=== PATIENT | female | born 1945 | race Caucasian/White ===

== ENCOUNTER 2021-03-08 01:03 | Emergency (ER) | payer OTHER ==
[2021-03-08] MEDS ORDERED: NA CHLORIDE 0.9% 0 ML ONE (02:19)
[2021-03-08] MEDS ORDERED: ONDANSETRON 4 MG/2 ML VIAL ONE (02:20)
[2021-03-08 02:28] LABS: Urine Blood 1+ (Negative); Urine Glucose Negative (Negative); Urine Protein Negative (Negative); Urine Specific Gravity >=1.030 (1.005-1.030)
[2021-03-08 02:46] LABS: Protime INR 0.95
[2021-03-08 02:53] LABS: Absolute Lymphocytes (CBC) 1.6 K/uL (0.7-4.9); Basophils % 0.6 % (0-1.3); Hematocrit 44.7 % (36.0-45.0); Lymphocytes % 21.6 % (15.3-44.8); MPV 8.1 fL (7.6-11.3); RBC Red Blood Cell Count 5.41 M/uL (3.86-4.86)
[2021-03-08] MEDS ORDERED: MORPHINE 2 MG/ML SYR ONE (02:56)
[2021-03-08 03:01] LABS: ALT/SGPT 29 U/L (12-78); AST/SGOT 15 U/L (15-37); Albumin 3.5 g/dL (3.4-5.0); Alkaline Phosphatase 69 U/L (45-117); BUN Blood Urea Nitrogen 18 mg/dL (7-18); Bicarbonate 28 mmol/L (21-32); Bilirubin Direct < 0.1 mg/dL (0-0.2); Bilirubin Total 0.2 mg/dL (0.2-1.0); Glucose Level 131 mg/dL (74-106); Lipase 259 U/L (73-393); NT PRO-BNP 118 pg/mL (<450); Potassium 3.5 mmol/L (3.5-5.1); Protein, Total 6.9 g/dL (6.4-8.2); Sodium Level 143 mmol/L (136-145); Troponin (Emerg Dept Use Only) < 0.02 ng/mL (0.0-0.045)
[2021-03-08] MEDS ORDERED: NA CHLORIDE 0.9% 500 ML ONE (04:33)
[2021-03-08] MEDS ORDERED: MORPHINE 4 MG/ML SYR ONE (06:12)
--- NOTE | 2021-03-08 07:21 | ER ---
Nurse's Notes [facility] Name: Josey Hutchinson Age: 76 yrs Sex: Female : 1945 Arrival Date: 03/08/2021 Time: 01:05 Bed 14 Private MD: Diagnosis: Other cholelithiasis without obstruction;UTI/ Urinary tract infection, site not specified;Upper abdominal pain, unspecified Presentation: 03/08 01:16 Chief complaint: Patient states: abd pain/chest pain/back pain. Coronavirus screen: df1 Vaccine status: Patient reports being unvaccinated. Client denies travel out of the [place] in the last 14 days. The client denies any previous COVID testing. Ebola Screen: Patient negative for fever greater than or equal to 101.5 degrees Fahrenheit, and additional compatible Ebola Virus Disease symptoms Patient denies exposure to infectious person. Patient denies travel to an Ebola-affected area in the 21 days before illness onset. Initial Sepsis Screen: Does the patient meet any 2 criteria? No. Patient's initial sepsis screen is negative. Does the patient have a suspected source of infection? No. Patient's initial sepsis screen is negative. Risk Assessment: Do you want to hurt yourself or someone else? Patient reports no desire to harm self or others. Onset of symptoms was March 08, 2021 at 00:00. 01:16 Method Of Arrival: Wheelchair df1 01:16 Acuity: SARATH 3 df1 01:23 Note Pt states woke up with sudden onset of abd pain radiating to mid-chest then to df1 back. Denies N/V/SOB. Triage Assessment: 01:22 General: Appears in no apparent distress. General: Behavior is calm, cooperative. Pain: df1 Complains of pain in xiphoid area and mid-sternal area. 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 - Social history:: Smoking status: Patient/guardian denies using tobacco. Screenin:20 Abuse screen: Denies threats or abuse. Denies injuries from another. Nutritional df1 screening: No deficits noted. Tuberculosis screening: No symptoms or risk factors identified. Fall Risk None identified. Assessment: 01:15 General: Appears in no apparent distress. comfortable, well groomed, well developed, bs2 well nourished, Behavior is cooperative, appropriate for age. Neuro: No deficits noted. Respiratory: No deficits noted. GI: Pt is actively vomiting bile. : No signs and/or symptoms were reported regarding the genitourinary system. 01:21 Pain: Pt states pain started in abd then chest then upper back. Pain began suddenly. df1 Cardiovascular: Chest pain is described as Pain is 6 out of 10 on a pain scale. episodes are intermittent. Vital Signs: 01:16 BP 147 / 71; Pulse 81; Resp 18; Temp 97.4; Pulse Ox 100% on R/A; Weight 68.04 kg; df1 Height 5 ft. 5 in. (165.10 cm); Pain 6/10; 02:38 BP 191 / 66; Pulse 84; Resp 18; Pulse Ox 100% on R/A; bs2 03:00 BP 145 / 77; Pulse 62; Resp 15; Pulse Ox 97% ; bs2 04:00 BP 156 / 75; Pulse 66; Resp 16; Pulse Ox 96% ; bs2 04:30 BP 158 / 89; Pulse 65; Resp 19; Pulse Ox 97% ; bs2 05:00 BP 165 / 90; Pulse 65; Resp 18; Pulse Ox 97% ; bs2 05:30 BP 159 / 84; Pulse 67; Resp 18; Pulse Ox 96% ; bs2 07:31 BP 157 / 77; Pulse 75; Resp 18; Pulse Ox 95% ; Pain 1/10; tc5 01:16 Body Mass Index 24.96 (68.04 kg, 165.10 cm) df1 ED Course: 01:05 Patient arrived in ED. ja2 01:15 EKG done, by missile technician. reviewed by Froylan Ocampo MD. oe 01:15 security monitor on. Pulse ox on. NIBP on. Warm blanket given. bs2 01:16 Froylan Ocampo MD is Attending Physician. mh7 01:17 Triage completed. df1 01:20 Patient has correct armband on for positive identification. Placed in gown. Bed in low df1 position. Call light in reach. Side rails up X 1. Adult w/ patient. security monitor on. Pulse ox on. NIBP on. 01:21 No provider procedures requiring assistance completed. Patient maintains SpO2 df1 saturation greater than 95% on room air. 01:24 Arm band placed on right wrist. df1 02:07 Naomie Paez is Primary Nurse. kc4 02:07 XRAY Chest (1 view) Sent. bs2 02:08 Troponin (emerg Dept Use Only) Sent. bs2 02:08 PT-INR Sent. bs2 02:08 NT PRO-BNP Sent. bs2 02:08 Magnesium Sent. bs2 02:08 LFT's Sent. bs2 02:08 CBC with Diff Sent. bs2 02:08 Basic Metabolic Panel Sent. bs2 02:09 Inserted saline lock: 20 gauge in left antecubital area, using aseptic technique. bs2 02:09 Lipase Sent. bs2 02:12 XRAY Chest (1 view) In Process Unspecified. EDMS 02:37 Urine Dipstick-Ancillary Sent. bs2 02:37 Lipase Sent. bs2 03:50 CT Chest For PE Angio In Process Unspecified. EDMS 03:50 CT Abd/Pelvis - IV Contrast Only In Process Unspecified. EDMS 06:34 US Abdomen Limited In Process Unspecified. EDMS 07:19 Armando Vidal MD is Referral Physician. mh7 07:48 IV discontinued, intact, bleeding controlled, No redness/swelling at site. Pressure tc5 dressing applied. Administered Medications: 02:07 Drug: Zofran (Ondansetron) 4 mg Route: IVP; Site: left antecubital; kc4 03:06 Follow up: Response: No adverse reaction df1 02:38 Drug: morphine 2 mg Route: IVP; Site: left antecubital; bs2 03:06 Follow up: Response: No adverse reaction df1 07:33 Follow up: Response: No adverse reaction; Pain is decreased tc5 04:11 Drug: NS 0.9% 500 ml Route: IV; Rate: bolus; Site: left antecubital; df1 06:14 Follow up: IV Status: Completed infusion bs2 07:33 Follow up: IV Status: Completed infusion; IV Intake: 500ml tc5 06:14 Drug: morphine 4 mg Route: IVP; Site: left antecubital; bs2 07:32 Follow up: Response: No adverse reaction; Pain is decreased tc5 07:22 Drug: Rocephin (cefTRIAXone) 1 grams Route: IV; Rate: per protocol; Site: left tc5 antecubital; 07:33 Follow up: Response: No adverse reaction tc5 Intake: 07:33 IV: 500ml; Total: 500ml. tc5 Outcome: 07:20 Discharge ordered by . michael 07:48 Discharged to home via wheelchair, with family. tc5 07:48 Condition: stable 07:48 Condition: stable 07:48 Discharge instructions given to patient. 07:49 Patient left the ED. 5 Signatures: Dispatcher [employer] EDMS Santiago Morales Maurice, MD MD 7 Franci Blandon, RN RN bs2 Naomie Paez 4 Indy Morton Dawn df1 Mable Bautista RN RN tc5
--- NOTE | 2021-03-08 07:21 | EDPHYS ---
Physician Documentation [facility] Name: Josey Hutchinson Age: 76 yrs Sex: Female : 1945 Arrival Date: 03/08/2021 Time: 01:05 Bed 14 Private MD: ED Physician Froylan Ocampo HPI: 03/08 01:30 This 76 yrs old Female presents to ER via Wheelchair with complaints of Chest mh7 Pain > 30 y/o, Nausea. 01:30 The patient presents with abdominal pain in the upper abdomen. mh7 01:30 Onset: The symptoms/episode began/occurred today, at 00:00. The symptoms radiate to mh7 chest. Associated signs and symptoms: Pertinent positives: nausea. 01:30 Associated signs and symptoms: Pertinent negatives: anorexia, blood in stools, mh7 constipation, diarrhea, dysuria, fever, headache, hematuria, palpitations, shortness of breath, vomiting, vomiting blood. The symptoms are described as intermittent, vague, waxing/waning. Modifying factors: The symptoms are alleviated by nothing, the symptoms are aggravated by nothing. 01:30 Severity of pain: At its worst the pain was moderate today, in the emergency department mh7 the pain has improved moderately. 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 - Social history:: Smoking status: Patient/guardian denies using tobacco. ROS: 01:30 Constitutional: Negative for fever, chills, and weight loss, Eyes: Negative for injury, mh7 pain, redness, and discharge, ENT: Negative for injury, pain, and discharge, Neck: Negative for injury, pain, and swelling, Respiratory: Negative for shortness of breath, cough, wheezing, and pleuritic chest pain, Back: Negative for injury and pain, : Negative for injury, bleeding, discharge, and swelling, MS/Extremity: Negative for injury and deformity, Skin: Negative for injury, rash, and discoloration, Neuro: Negative for headache, weakness, numbness, tingling, and seizure, Psych: Negative for depression, anxiety, suicide ideation, homicidal ideation, and hallucinations, Allergy/Immunology: Negative for hives, rash, and allergies, Endocrine: Negative for neck swelling, polydipsia, polyuria, polyphagia, and marked weight changes, Hematologic/Lymphatic: Negative for swollen nodes, abnormal bleeding, and unusual bruising. Exam: 01:30 Constitutional: This is a well developed, well nourished patient who is awake, alert, mh7 and in no acute distress. Head/Face: Normocephalic, atraumatic. Eyes: Pupils equal round and reactive to light, extra-ocular motions intact. Lids and lashes normal. Conjunctiva and sclera are non-icteric and not injected. Cornea within normal limits. Periorbital areas with no swelling, redness, or edema. Neck: Trachea midline, no thyromegaly or masses palpated, and no cervical lymphadenopathy. Supple, full range of motion without nuchal rigidity, or vertebral point tenderness. No Meningismus. Chest/axilla: Normal chest wall appearance and motion. Nontender with no deformity. No lesions are appreciated. Cardiovascular: Regular rate and rhythm with a normal S1 and S2. No gallops, murmurs, or rubs. Normal PMI, no JVD. No pulse deficits. Respiratory: Lungs have equal breath sounds bilaterally, clear to auscultation and percussion. No rales, rhonchi or wheezes noted. No increased work of breathing, no retractions or nasal flaring. Abdomen/GI: Soft, non-tender, with normal bowel sounds. No distension or tympany. No guarding or rebound. No evidence of tenderness throughout. Back: No spinal tenderness. No costovertebral tenderness. Full range of motion. Skin: Warm, dry with normal turgor. Normal color with no rashes, no lesions, and no evidence of cellulitis. MS/ Extremity: Pulses equal, no cyanosis. Neurovascular intact. Full, normal range of motion. Neuro: Awake and alert, GCS 15, oriented to person, place, time, and situation. Cranial nerves II-XII grossly intact. Motor strength 5/5 in all extremities. Sensory grossly intact. Cerebellar exam normal. Normal gait. Psych: Awake, alert, with orientation to person, place and time. Behavior, mood, and affect are within normal limits. Vital Signs: 01:16 BP 147 / 71; Pulse 81; Resp 18; Temp 97.4; Pulse Ox 100% on R/A; Weight 68.04 kg; df1 Height 5 ft. 5 in. (165.10 cm); Pain 6/10; 02:38 BP 191 / 66; Pulse 84; Resp 18; Pulse Ox 100% on R/A; bs2 03:00 BP 145 / 77; Pulse 62; Resp 15; Pulse Ox 97% ; bs2 04:00 BP 156 / 75; Pulse 66; Resp 16; Pulse Ox 96% ; bs2 04:30 BP 158 / 89; Pulse 65; Resp 19; Pulse Ox 97% ; bs2 05:00 BP 165 / 90; Pulse 65; Resp 18; Pulse Ox 97% ; bs2 05:30 BP 159 / 84; Pulse 67; Resp 18; Pulse Ox 96% ; bs2 07:31 BP 157 / 77; Pulse 75; Resp 18; Pulse Ox 95% ; Pain 1/10; tc5 01:16 Body Mass Index 24.96 (68.04 kg, 165.10 cm) df1 MDM: 07:18 Differential diagnosis: bowel obstruction, cholecystitis, Cholelithiasis, mh7 diverticulitis, gastritis, gastroesophageal reflux disease, non-specific abd pain, pancreatitis, Peptic Ulcer Disease, Pyelonephritis, Ureterolithiasis, urinary tract infection. Data reviewed: vital signs, nurses notes, lab test result(s), cardiac enzymes, CBC, electrolytes, urinalysis, EKG, radiologic studies, CT scan, plain films. Data interpreted: Pulse oximetry: on room air is 96 %. Interpretation: normal. Counseling: I had a detailed discussion with the patient and/or guardian regarding: the historical points, exam findings, and any diagnostic results supporting the discharge/admit diagnosis, the presence of at least one elevated blood pressure reading (>120/80) during this emergency department visit, lab results, radiology results, the need for outpatient follow up, a general surgeon, to return to the emergency department if symptoms worsen or persist or if there are any questions or concerns that arise at home. Response to treatment: the patient's symptoms have resolved after treatment, the patient's blood pressure is in an acceptable range, mental status has returned to baseline, the patient no longer shows bradycardia, the patient is not short of breath, the patient is not tachycardic, the patient's pain is gone, the patient's temperature has normalized. 07:20 Patient medically screened. [facility] 03/08 01:43 Order name: Basic Metabolic Panel; Complete Time: 03:03 [facility] 03/08 01:43 Order name: CBC with Diff; Complete Time: 03:03 [facility] 03/08 01:43 Order name: LFT's; Complete Time: 03:03 [facility] 03/08 01:43 Order name: Magnesium; Complete Time: 03:03 [facility] 03/08 01:43 Order name: NT PRO-BNP; Complete Time: 03:03 [facility] 03/08 01:43 Order name: PT-INR; Complete Time: 03:03 [facility] 03/08 01:43 Order name: Troponin (emerg Dept Use Only); Complete Time: 03:03 [facility] 03/08 01:43 Order name: XRAY Chest (1 view) [facility] 03/08 01:43 Order name: Lipase; Complete Time: 03:03 [facility] 03/08 02:28 Order name: Urine Dipstick-Ancillary [facility] 03/08 03:04 Order name: CT Chest For PE Angio [facility] 03/08 03:04 Order name: CT Abd/Pelvis - IV Contrast Only [facility] 03/08 05:53 Order name: Troponin (emerg Dept Use Only); Complete Time: 07:11 [facility] 03/08 01:43 Order name: EKG; Complete Time: 01:44 [facility] 03/08 01:43 Order name: Cardiac monitoring; Complete Time: 02:08 [facility] 03/08 01:43 Order name: EKG - Nurse/Tech; Complete Time: 02:08 [facility] 03/08 01:43 Order name: IV Saline Lock; Complete Time: 02:08 [facility] 03/08 01:43 Order name: Labs collected and sent; Complete Time: 02:08 [facility] 03/08 01:43 Order name: O2 Per Protocol; Complete Time: 02:08 [facility] 03/08 01:43 Order name: O2 Sat Monitoring; Complete Time: 02:08 [facility] 03/08 01:43 Order name: Urine Dipstick-Ancillary (obtain specimen); Complete Time: 02:37 [facility] 10/20 05:53 Order name: US Abdomen Limited [facility] Administered Medications: 02:07 Drug: Zofran (Ondansetron) 4 mg Route: IVP; Site: left antecubital; kc4 03:06 Follow up: Response: No adverse reaction df1 02:38 Drug: morphine 2 mg Route: IVP; Site: left antecubital; bs2 03:06 Follow up: Response: No adverse reaction df1 07:33 Follow up: Response: No adverse reaction; Pain is decreased tc5 04:11 Drug: NS 0.9% 500 ml Route: IV; Rate: bolus; Site: left antecubital; df1 06:14 Follow up: IV Status: Completed infusion bs2 07:33 Follow up: IV Status: Completed infusion; IV Intake: 500ml tc5 06:14 Drug: morphine 4 mg Route: IVP; Site: left antecubital; bs2 07:32 Follow up: Response: No adverse reaction; Pain is decreased tc5 07:22 Drug: Rocephin (cefTRIAXone) 1 grams Route: IV; Rate: per protocol; Site: left tc5 antecubital; 07:33 Follow up: Response: No adverse reaction tc5 Disposition Summary: 03/08/21 07:20 Discharge Ordered Location: Home [facility] Problem: new [facility] Symptoms: have improved [facility] Condition: Stable [facility] Diagnosis - Other cholelithiasis without obstruction mh7 - UTI/ Urinary tract infection, site not specified mh7 - Upper abdominal pain, unspecified 7 Followup: [facility] - With: Private Physician - When: 1 - 2 days - Reason: Worsening of condition, Recheck today's complaints, Continuance of care, Re-evaluation by your physician Followup: [facility] - With: Armando Vidal MD - When: 1 - 2 days - Reason: Worsening of condition, Recheck today's complaints Discharge Instructions: - Discharge Summary Sheet [facility] - Cholelithiasis mh7 - Urinary Tract Infection, Adult, [id number] [facility] - Abdominal Pain, Adult, [id number] [facility] Forms: - Medication Reconciliation Form [facility] - Thank You Letter [facility] - Antibiotic Education [facility] - Prescription Opioid Use [facility] Prescriptions: - ondansetron 4 mg Oral tablet,disintegrating - place 1 tablet by TRANSLINGUAL route every 8 hours As needed; 10 tablet; [facility] Refills: 0, Product Selection Permitted - Cephalexin 500 mg Oral Capsule - take 1 capsule by ORAL route every 12 hours for 7 days; 14 capsule; Refills: 0, [facility] Product Selection Permitted - dicyclomine 20 mg Oral Tablet - take 1 tablet by ORAL route 4 times per day As needed; 20 tablet; Refills: 0, 7 Product Selection Permitted Signatures: Dispatcher [employer] Froylan Coats MD MD 7 Franci Blandon RN RN bs2 Naomie Paez4 Lianet Rodriguez df1 Mable Bautista RN RN tc5
--- NOTE | 2021-03-08 07:31 | RAD REPORT ---
EXAM DESCRIPTION: Alejo Single View03/08/2021 2:12 am CLINICAL HISTORY: Chest pain COMPARISON: 2015 FINDINGS: The lungs appear clear of acute infiltrate. The heart is normal size IMPRESSION: No acute abnormalities displayed
[2021-03-08] MEDS ORDERED: CEFTRIAXONE 1000 MG/VIAL ONE (07:43)
[2021-03-08 07:56] VITALS: TEMP 97.4
[2021-03-08 08:06] VITALS: BP 157/77; O2SAT 95
--- NOTE | 2021-03-08 08:09 | RAD REPORT ---
EXAM DESCRIPTION: US - Abdomen Exam Limited - 03/08/2021 6:34 am CLINICAL HISTORY: Abdominal pain. COMPARISON: March 08, 2021 CT FINDINGS: The gallbladder wall is not thickened. Multiple gallstones. Borderline gallbladder disten tion. The biliary tree is normal caliber. IMPRESSION: Cholelithiasis Borderline gallbladder distention
--- NOTE | 2021-03-08 12:41 | RAD REPORT ---
EXAM DESCRIPTION: CT - Abdomen Pelvis W Contrast - 03/08/2021 6:49 am CLINICAL HISTORY: ABD PAIN COMPARISON: None Available. TECHNIQUE: CT of the abdomen and pelvis performed following IV administration of iodinated contras t. This exam was performed according to our departmental dose-optimization program, which includes au tomated exposure control, adjustment of the mA and/or kV according to patient size and/or use of iter ative reconstruction technique. FINDINGS: Lung Bases: Please see dedicated CT of the chest performed same day Bones: Multilevel endplate spondylosis and facet arthropathy. Abdomen: Liver: The liver has normal size and density. No intrahepatic biliary dilatation. Gallbladder: Calcified gallstones. Spleen, Pancreas, and Adrenal Glands: The spleen, pancreas, and adrenal glands are unremarkable. Kidneys: No hydronephrosis or obstructing calculus. Vasculature: Aortoiliac atherosclerosis. IVC is unremarkable. The portal vein is patent. The proxim al visceral and renal arteries are patent. Stomach: The stomach and duodenum have normal course. Small duodenal diverticulum. Other: No free intraperitoneal air. No free fluid or lymphadenopathy. Pelvis: Bladder: Urinary bladder is unremarkable. Bowel: No dilated loops of large or small bowel. Scattered diverticula of the colon. Appendix: Normal appendix. Pelvis: Uterus is not enlarged. Indeterminate cystic structure in the left posterior pelvis adjacent to the sigmoid colon measuring 3.0 cm in greatest dimension. IMPRESSION: 1. No acute inflammatory or obstructive process identified. 2. Cholelithiasis without CT evidence of acute cholecystitis. 3. Diverticulosis without evidence of acute diverticulitis. 4. Indeterminate cystic structure in the left posterior pelvis adjacent to the sigmoid colon measur ing 3.0 cm in greatest dimension. Correlation with outside studies are available for stability recomm ended. Otherwise follow-up CT of the abdomen and in 3-6 months recommended to confirm stability. Electronically signed by: Buddy Bennett 03/08/2021 4:36 AM CDT Due to temporary technical issues with the PACS/Fluency reporting system, reports are being signed by the in house radiologist without review as a courtesy to ensure prompt reporting. The interpreting r adiologist is fully responsible for the content of the report.
--- NOTE | 2021-03-08 12:42 | RAD REPORT ---
EXAM DESCRIPTION: CT - Chest For Pe Angio - 03/08/2021 6:50 am CLINICAL HISTORY: The patient is 76 years old and is Female; CHEST PAIN TECHNIQUE: Axial computed tomographic angiography images of the chest with intravenous contrast. S agittal and coronal reformatted images were created and reviewed. This CT exam was performed using one or more of the following dose reduction techniques: automated exposure control, adjustment of t he mA and/or kV according to patient size, and/or use of iterative reconstruction technique. MIP reconstructed images were created and reviewed. COMPARISON: No relevant prior studies available. FINDINGS: PULMONARY ARTERIES: There are no obvious filling defects identified within the pulmonary arteries to suggest pulmonary embolism. AORTA: No acute findings. No thoracic aortic aneurysm. LUNGS: Minimal dependent densities in the lung bases are present. No mass. PLEURAL SPACE: Unremarkable. No significant effusion. No pneumothorax. HEART: Unremarkable. No cardiomegaly. No significant pericardial effusion. No evidence of RV dysfunction. BONES/JOINTS: A small 1.6 cm fluid attenuating lesion adjacent to the T10 vertebral body on the right is present which may be secondary to a synovial cyst. Minimal degenerative change of the spin e is present. No acute fracture. No dislocation. SOFT TISSUES: Unremarkable. LYMPH NODES: Unremarkable. No enlarged lymph nodes. PANCREAS: Mild fatty infiltration of pancreas is noted. IMPRESSION: No evidence of pulmonary embolism. Electronically signed by: Emma Caldwell MD 03/08/2021 4:22 AM CDT Due to temporary technical issues with the PACS/Fluency reporting system, reports are being signed by the in house radiologist without review as a courtesy to ensure prompt reporting. The interpreting r adiologist is fully responsible for the content of the report.
== END 2021-03-08 07:49 | disposition home or self-care (01) ==
LOC: ER 01:03
DX: K80.80 Other cholelithiasis without obstruction (principal); N39.0 Urinary tract infection, site not specified; Z88.2 Allergy status to sulfonamides; Z88.5 Allergy status to narcotic agent; Z88.8 Allergy status to other drugs, medicaments and biological substances
CPT/HCPCS: 93005; 85025; 80048; 36415; 83735; 85610; 80076; 81003; 84484 ×2; 83690; 83880; 71275; 74177; 71045; 76705; Q9967; J2270; J7040; J2405; J7030

== ENCOUNTER 2021-04-28 13:22 | Emergency (ER) | payer OTHER ==
--- NOTE | 2021-04-28 14:20 | RAD REPORT ---
EXAM DESCRIPTION: RAD - Chest Single View - 04/28/2021 2:10 pm CLINICAL HISTORY: CHEST PAIN COMPARISON: Chest Single View dated 03/08/2021; Chest Pa And Lat (2 Views) dated 09/03/2015; CHEST PA AND LAT 2 VIEW dated 12/30/2014 FINDINGS: Lines: None. Lungs: No evidence of edema or pneumonia. Pleural: No significant pleural effusions or pneumothorax. Cardiac: The heart size is within normal limits. Bones: No acute fractures. Other: IMPRESSION: No acute cardiopulmonary disease.
[2021-04-28 14:30] LABS: Absolute Lymphocytes (CBC) 0.9 K/uL (0.7-4.9); Basophils % 0.6 % (0-1.3); Hematocrit 43.6 % (36.0-45.0); Lymphocytes % 14.3 % (15.3-44.8); MPV 8.4 fL (7.6-11.3); RBC Red Blood Cell Count 5.35 M/uL (3.86-4.86)
[2021-04-28 14:31] LABS: Protime INR 0.96
[2021-04-28 14:59] LABS: ALT/SGPT 728 U/L (12-78); Albumin 3.1 g/dL (3.4-5.0); Alkaline Phosphatase 191 U/L (45-117); BUN Blood Urea Nitrogen 15 mg/dL (7-18); Bicarbonate 27 mmol/L (21-32); Glucose Level 115 mg/dL (74-106); Magnesium 2.3 mg/dL (1.8-2.4); NT PRO-BNP 122 pg/mL (<450); Potassium 3.7 mmol/L (3.5-5.1); Protein, Total 6.7 g/dL (6.4-8.2); Sodium Level 142 mmol/L (136-145); Troponin (Emerg Dept Use Only) < 0.02 ng/mL (0.0-0.045)
[2021-04-28 15:01] LABS: AST/SGOT 612 U/L (15-37)
--- NOTE | 2021-04-28 17:02 | RAD REPORT ---
EXAM DESCRIPTION: US - Abdomen Exam Limited - 04/28/2021 4:54 pm CLINICAL HISTORY: EPIGASTRIC PAIN COMPARISON: Abdomen Exam Limited dated 03/08/2021; Abdomen Pelvis W Contrast dated 03/08/2021 FINDINGS: Cholelithiasis is present. The gallbladder wall measures 3 millimeters which is within nor mal limits. No pericholecystic fluid is identified. No biliary ductal dilatation. The common bile hesham t measures 5 millimeters. No sonographic Smith's sign was elicited. IMPRESSION: Cholelithiasis without sonographic evidence of acute cholecystitis.
--- NOTE | 2021-04-28 17:43 | ER ---
Nurse's Notes [facility] Name: Josey Hutchinson Age: 76 yrs Sex: Female : 1945 Arrival Date: 04/28/2021 Time: 13:24 Bed 6 Private MD: Diagnosis: Other cholelithiasis without obstruction Presentation: 04/28 13:31 Chief complaint: Patient states: Chest pain began yesterday and went away then today at vg1 1000 chest pain began again, pt states radiates to back. Denies NV, SOB, or difficulty breathing. Coronavirus screen: Vaccine status: Patient reports being unvaccinated. Client denies travel out of the [place] in the last 14 days. Ebola Screen: Patient negative for fever greater than or equal to 101.5 degrees Fahrenheit, and additional compatible Ebola Virus Disease symptoms. Initial Sepsis Screen: Does the patient meet any 2 criteria? No. Patient's initial sepsis screen is negative. Does the patient have a suspected source of infection? No. Patient's initial sepsis screen is negative. Risk Assessment: Do you want to hurt yourself or someone else? Patient reports no desire to harm self or others. Onset of symptoms was April 27, 2021. 13:31 Method Of Arrival: Ambulatory vg1 13:31 Acuity: SARATH 2 vg1 Triage Assessment: 13:33 General: Appears in no apparent distress. comfortable, Behavior is calm, cooperative. vg1 Pain: Complains of pain in mid-sternal area Pain radiates to back Pain currently is 6 out of 10 on a pain scale. Cardiovascular: Patient's skin is warm and dry. Respiratory: Denies shortness of breath. Historical: - Allergies: 13:33 Benadryl; vg1 13:33 Codeine; vg1 13:33 Sulfa (Sulfonamide Antibiotics); vg1 13:33 atorvastatin; vg1 13:33 Dilantin; vg1 - Home Meds: 13:33 zyzol 2.5 mg daily [Active]; dicyclomine Oral [Active]; Zofran Oral [Active]; vg1 - PMHx: 13:33 histamine allergy; "non fuctioning"; Hypertensive disorder; vg1 - Immunization history:: Client reports having NOT received the Covid vaccine. - Social history:: Smoking status: Patient reports the use of cigarette tobacco products, "less that 10 a day". Screenin:58 Abuse screen: Denies threats or abuse. Nutritional screening: No deficits noted. ll1 Tuberculosis screening: No symptoms or risk factors identified. 14:42 Fall Risk IV access (20 points). Total [place] Fall Scale indicates No Risk (0-24 pts). ll1 Assessment: 14:30 Reassessment: No changes from previously documented assessment. Patient and/or family ll1 updated on plan of care and expected duration. Pain level reassessed. Patient is alert, oriented x 3, equal unlabored respirations, skin warm/dry/pink. 15:30 Reassessment: No changes from previously documented assessment. Patient and/or family ll1 updated on plan of care and expected duration. Pain level reassessed. Patient is alert, oriented x 3, equal unlabored respirations, skin warm/dry/pink. 16:30 Reassessment: No changes from previously documented assessment. Patient and/or family ll1 updated on plan of care and expected duration. Pain level reassessed. Patient is alert, oriented x 3, equal unlabored respirations, skin warm/dry/pink. 17:30 Reassessment: No changes from previously documented assessment. Patient and/or family ll1 updated on plan of care and expected duration. Pain level reassessed. Patient is alert, oriented x 3, equal unlabored respirations, skin warm/dry/pink. 17:52 Reassessment: No changes from previously documented assessment. Patient and/or family ll1 updated on plan of care and expected duration. Pain level reassessed. Patient is alert, oriented x 3, equal unlabored respirations, skin warm/dry/pink. Pain: Denies pain. 17:52 Pain: Pain began suddenly. ll1 Vital Signs: 13:31 BP 185 / 85; Pulse 62; Resp 16; Temp 98.8; Pulse Ox 99% ; Weight 65.32 kg; Height 5 ft. vg1 5 in. (165.10 cm); Pain 6/10; 14:41 BP 142 / 84; ll1 16:00 BP 172 / 89; Pulse 56; Resp 16; Pulse Ox 99% ; ll1 17:50 BP 184 / 84; Pulse 58; Resp 16; Pulse Ox 99% ; ll1 13:31 Body Mass Index 23.96 (65.32 kg, 165.10 cm) vg1 ED Course: 13:24 Patient arrived in ED. am2 13:33 Triage completed. vg1 13:33 Arm band placed on. EKG completed in triage. Results shown to MD. vg1 13:38 Grace Willis, RN is Primary Nurse. ll1 13:38 Patient placed in an exam room, on a stretcher. ll1 13:58 Inserted saline lock: 20 gauge in left forearm, using aseptic technique. Blood ll1 collected. 14:10 XRAY Chest (1 view) In Process Unspecified. EDMS 14:41 Patient has correct armband on for positive identification. Bed in low position. Call ll1 light in reach. Side rails up X 1. Side rails up X2. court recording monitor on. Pulse ox on. NIBP on. 14:42 Patient maintains SpO2 saturation greater than 95% on room air. ll1 15:02 Kishan Moffett NP is PHCP. pm1 15:02 Daniel Rdz MD is Attending Physician. pm1 16:54 US Abdomen Limited In Process Unspecified. EDMS 17:43 Armando Vidal MD is Referral Physician. pm1 17:51 IV discontinued, intact, bleeding controlled, No redness/swelling at site. Pressure ll1 dressing applied. 17:52 No provider procedures requiring assistance completed. ll1 Administered Medications: No medications were administered Outcome: 17:43 Discharge ordered by MD. pm1 17:52 Discharged to home ambulatory. ll1 17:52 Condition: stable 17:52 Discharge instructions given to patient, Instructed on discharge instructions, follow up and referral plans. medication usage, Demonstrated understanding of instructions, follow-up care, medications, Prescriptions given X 2. 17:53 Patient left the ED. ll1 Signatures: Dispatcher [employer] EDSC Kishan Moffett, BLEIA METAL SLITTER pm1 Gali Preston am2 Jacqueline Mcclure, RN RN vg1 Grace Willis, RN RN ll1
--- NOTE | 2021-04-28 17:44 | EDPHYS ---
Physician Documentation [facility] Name: Josey Hutchinson Age: 76 yrs Sex: Female : 1945 Arrival Date: 04/28/2021 Time: 13:24 Bed 6 Private MD: ED Physician Daniel Rdz HPI: 04/28 13:50 This 76 yrs old Female presents to ER via Ambulatory with complaints of Chest Pain > 30 pm1 y/o. 13:50 The patient or guardian reports chest pain that is located primarily in the epigastric pm1 area. Onset: this morning, 1.5 - 2 hours after eating fried egg this AM for breakfast. The pain does not radiate. Associated signs and symptoms: The patient has no apparent associated signs or symptoms. The chest pain is described as sharp. Duration: The patient or guardian reports a single episode, that is now resolved, With Bentyl taking after onset of pain. Resolved prior to ER arrival in room. Modifying factors: The symptoms are alleviated by Bentyl. the symptoms are aggravated by eating. Severity of pain: in the emergency department the pain has resolved. The patient has experienced a previous episode, and the symptoms today are exactly the same, 03/08 admission for chest pain that resulted in cholelithiasis diagnosis and follow-up with Dr. Vidal. She has a scheduled surgery with him at the beginning of next year. The patient has not recently seen a physician. Historical: - Allergies: 13:33 Benadryl; vg1 13:33 Codeine; vg1 13:33 Sulfa (Sulfonamide Antibiotics); vg1 13:33 atorvastatin; vg1 13:33 Dilantin; vg1 - Home Meds: 13:33 zyzol 2.5 mg daily [Active]; dicyclomine Oral [Active]; Zofran Oral [Active]; vg1 - PMHx: 13:33 histamine allergy; "non fuctioning"; Hypertensive disorder; vg1 - Immunization history:: Client reports having NOT received the Covid vaccine. - Social history:: Smoking status: Patient reports the use of cigarette tobacco products, "less that 10 a day". ROS: 13:50 Constitutional: Negative for fever, chills, and weight loss, Respiratory: Negative for pm1 shortness of breath, cough, wheezing, and pleuritic chest pain. 13:50 Back: Negative for injury and pain, MS/Extremity: Negative for injury and deformity, Skin: Negative for injury, rash, and discoloration, Neuro: Negative for headache, weakness, numbness, tingling, and seizure. 13:50 Cardiovascular: Positive for chest pain, of the epigastric area. 13:50 Abdomen/GI: Positive for abdominal pain, of the epigastric area, Negative for nausea, vomiting, and diarrhea. 13:50 All other systems are negative. Exam: 13:50 Constitutional: This is a well developed, well nourished patient who is awake, alert, pm1 and in no acute distress. Head/Face: Normocephalic, atraumatic. 13:50 Skin: Warm, dry with normal turgor. Normal color with no rashes, no lesions, and no evidence of cellulitis. MS/ Extremity: Pulses equal, no cyanosis. Neurovascular intact. Full, normal range of motion. 13:50 Eyes: Exam is negative for acute changes, Extraocular movements: no acute changes, Conjunctiva: no acute changes, no injection, Sclera: no acute changes, icterus, is not appreciated. 13:50 ENT: Exam is negative for acute changes, Mouth: no acute changes, Lips: normal, moist, Oral mucosa: normal, pink and intact, moist. 13:50 Cardiovascular: Exam negative for acute changes, Rate: normal, Rhythm: regular, Pulses: no pulse deficits are appreciated, Heart sounds: normal. 13:50 Respiratory: Exam negative for acute changes, the patient does not display signs of respiratory distress, Respirations: normal, Breath sounds: are clear throughout. 13:50 Abdomen/GI: Exam negative for acute changes, Inspection: abdomen appears normal, Palpation: abdomen is soft and non-tender, in all quadrants. 13:50 Neuro: Exam negative for acute changes, Orientation: is normal, Mentation: is normal, Motor: is normal, moves all fours. 17:35 Abdomen/GI: Exam negative for acute changes, Inspection: abdomen appears normal, pm1 Palpation: abdomen is soft and non-tender, in all quadrants. Vital Signs: 13:31 BP 185 / 85; Pulse 62; Resp 16; Temp 98.8; Pulse Ox 99% ; Weight 65.32 kg; Height 5 ft. vg1 5 in. (165.10 cm); Pain 6/10; 14:41 BP 142 / 84; ll1 16:00 BP 172 / 89; Pulse 56; Resp 16; Pulse Ox 99% ; ll1 17:50 BP 184 / 84; Pulse 58; Resp 16; Pulse Ox 99% ; ll1 13:31 Body Mass Index 23.96 (65.32 kg, 165.10 cm) vg1 MDM: 15:28 Patient medically screened. pm1 17:34 Data reviewed: vital signs. Data interpreted: Pulse oximetry: on room air is 99 %. pm1 Interpretation: normal. 17:42 Physician consultation: Armando Vidal MD regarding patient's condition, and will see pm1 patient in office, Prescription for Augmentin for 7 days, have patient call the office on Saturday to follow up and move up her appointment, and dietary instructions. I discussed the conversation with Dr. Rdz and Dr. Vidal with the patient and the patient understands the plan of care. 04/28 13:50 Order name: Basic Metabolic Panel; Complete Time: 15:28 1 04/28 13:50 Order name: CBC with Diff; Complete Time: 15:28 ll1 04/28 13:50 Order name: LFT's; Complete Time: 15:28 ll1 04/28 13:50 Order name: Magnesium; Complete Time: 15:28 ll1 04/28 13:50 Order name: NT PRO-BNP; Complete Time: 15:28 ll1 04/28 13:50 Order name: PT-INR; Complete Time: 15:28 1 04/28 13:50 Order name: Troponin (emerg Dept Use Only); Complete Time: 15:28 1 04/28 13:50 Order name: XRAY Chest (1 view); Complete Time: 15:28 ll1 04/28 13:50 Order name: EKG; Complete Time: 13:50 ll1 04/28 13:50 Order name: Cardiac monitoring; Complete Time: 13:50 ll1 04/28 13:50 Order name: EKG - Nurse/Tech; Complete Time: 13:50 ll1 04/28 13:50 Order name: IV Saline Lock; Complete Time: 13:50 ll1 04/28 15:29 Order name: US Abdomen Limited; Complete Time: 17:07 pm1 04/28 15:29 Order name: Lipase pm1 04/28 13:50 Order name: Labs collected and sent; Complete Time: 13:50 ll1 04/28 13:50 Order name: O2 Per Protocol; Complete Time: 13:50 ll1 04/28 13:50 Order name: O2 Sat Monitoring; Complete Time: 13:50 ll1 Administered Medications: No medications were administered Disposition Summary: 04/28/21 17:43 Discharge Ordered Location: Home pm1 Problem: new pm1 Symptoms: have improved pm1 Condition: Stable pm1 Diagnosis - Other cholelithiasis without obstruction pm1 Followup: pm1 - With: Emergency Department - When: As needed - Reason: Worsening of condition Followup: pm1 - With: Armando Vidal MD - When: 2 - 3 days - Reason: Recheck today's complaints, Continuance of care, Re-evaluation by your physician Discharge Instructions: - Discharge Summary Sheet pm1 - Cholelithiasis pm1 Forms: - Medication Reconciliation Form pm1 - Thank You Letter pm1 - Antibiotic Education pm1 - Prescription Opioid Use pm1 Prescriptions: - Augmentin 875-125 mg Oral Tablet - take 1 tablet by ORAL route every 12 hours for 7 days; 14 tablet; Refills: 0, pm1 Product Selection Permitted - Tramadol 50 mg Oral Tablet - take 1 tablet by ORAL route every 8 hours as needed; 12 tablet; Refills: 0, pm1 Product Selection Permitted Addendum: 05/01/2021 11:21 Co-signature as Attending Physician, Daniel Rdz MD I agree with the assessment and k dr plan of care. Signatures: Dispatcher [employer] EDDaniel Arnold MD MD kdr Marinas, Patrick, NP OXYGEN FURNACE OPERATOR pm1 Jacqueline Mcclure, RN RN 1 Grace Willis RN RN ll1
[2021-04-28 18:06] VITALS: TEMP 98.8; O2SAT 99
[2021-04-28 18:11] VITALS: BP 184/84
== END 2021-04-28 17:53 | disposition home or self-care (01) ==
LOC: ER 13:22
DX: K80.80 Other cholelithiasis without obstruction (principal); I10 Essential (primary) hypertension
CPT/HCPCS: 36415; 71045; 76705; 80048; 80076; 83690; 83735; 83880; 84484; 85025; 85610; 93005; 99285

== ENCOUNTER 2021-05-10 07:27 | Day surgery (SDC) | payer OTHER ==
[2021-05-09 14:26] LABS: Albumin 3.2 g/dL (3.4-5.0); Bilirubin Total 0.3 mg/dL (0.2-1.0); Potassium 3.9 mmol/L (3.5-5.1); Protein, Total 6.7 g/dL (6.4-8.2)
[2021-05-10] MEDS ORDERED: Ringers Lactate 1,000 ML IV ONE (07:49)
[2021-05-10] MEDS ORDERED: CEFOXITIN 2 GM in NA CHLORIDE 0.9% 100 ML IVPB ONE (08:00)
[2021-05-10 08:05] LABS: Albumin 3.3 g/dL (3.4-5.0); Bilirubin Total 0.5 mg/dL (0.2-1.0); Potassium 3.4 mmol/L (3.5-5.1); Protein, Total 7.1 g/dL (6.4-8.2)
[2021-05-10] MEDS ORDERED: BUPIVACAINE 0.25% PF 10 ML VIAL ONE (08:38)
[2021-05-10] MEDS ORDERED: FENTANYL CITR 100 MCG/2 ML ONE ×2 (09:18→10:33)
[2021-05-10] MEDS ORDERED: LIDOCAINE 1% MPF 5 ML VIAL ONE (09:18)
[2021-05-10] MEDS ORDERED: propofoL 200 MG/20 ML VIAL IV ONE (09:18)
[2021-05-10] MEDS ORDERED: ROCURONIUM 50 MG/5 ML VIAL IV ONE (09:18)
[2021-05-10] MEDS ORDERED: EPHEDRINE SULF 50 MG/ML VIAL ONE (09:50)
[2021-05-10] MEDS ORDERED: NS 0.9% VIAL 10 ML ONE (09:50)
[2021-05-10] MEDS ORDERED: KETOROLAC 30 MG/ML INJ ONE (10:02)
[2021-05-10] MEDS ORDERED: dexAMETHasone 10 MG/ML VIAL ONE (10:02)
[2021-05-10] MEDS ORDERED: ONDANSETRON 4 MG/2 ML VIAL ONE (10:04)
[2021-05-10] MEDS ORDERED: NEOSTIGMINE 1 MG/ML -5 ML ONE (10:41)
[2021-05-10] MEDS ORDERED: GLYCOPYRROLATE 0.2 MG/ML SYR ONE (10:41)
--- NOTE | 2021-05-10 10:54 | P.OP ---
Preoperative diagnosis: Cholecystitis with cholelithiasis Postoperative diagnosis: Cholecystitis with cholelithiasis Primary procedure: Laparoscopic Cholecystectomy Secondary procedure: ICG Cholangiography Anesthesia: GETA + Local Estimated blood loss: <10cc Specimen: gallbladder Findings: Inflammatory changes, adhesions, KENNEDY, cholelithiasis Complications: None Transferred to: Recovery Room Condition: Good
--- NOTE | 2021-05-10 11:38 | OP ---
Date of Procedure: 05/10/2021 Surgeon: Armando Vidal MD, Preoperative Diagnosis: Cholecystitis with cholelithiasis. Postoperative Diagnosis: Cholecystitis with cholelithiasis. Procedure Performed: Laparoscopic cholecystectomy with indocyanine green cholangiography. Anesthesia: General endotracheal plus local with 0.25% Marcaine. Estimated Blood Loss: 10 mL. Specimen: Gallbladder. Findings: 1.Inflammatory changes to the right upper quadrant with significant adhesions from the omentum to th e anterior surface of the gallbladder. In addition, the stomach was firmly attached to the medial as pect of the gallbladder with alveolar type adhesions. The patient had a KENNEDY type nodular appearance to the liver generally consistent with steatohepatitis versus early cirrhotic changes. 2.The patient had cholelithiasis. Complications: None. The patient transferred to recovery room in good condition. Procedure In Detail: After informed consent was obtained, patient was brought to the operating room, prepped and draped in the usual sterile fashion. After adequate anesthesia achieved, a supraumbilic al area was anesthetized with 0.25% Marcaine, sharply incised. A 5 mm trocar was placed under direct vision without complication. Insufflation obtained to 15 mmHg at this time. There was no injury to vital structures upon entering the abdomen. Three additional trocars were placed, 2 in the right up per quadrant, 1 in the epigastrium. This was similarly anesthetized, sharply incised, a 5 mm trocar was placed under direct visualization without complication. The umbilical trocar was then up-sized t o a 12 mm direct visualization without any complication. The patient was positioned head up in right -side up position. Ratcheted graspers were used to grasp the patient's gallbladder, placed towards t he right shoulder. Dissection continued to remove the omental tissue attached to the anterior surfac e of the gallbladder as well as stomach off the medial aspect of the gallbladder with a combination o f electrocautery and blunt dissection. After the structures were mobilized, the gallbladder was visu alized. ICG cholangiography confirmed position after dissection of the cystic duct and cystic artery . Critical view of safety was obtained at this point, and ICG cholangiography confirmed position. T he common duct not involved in the dissection. The cystic duct was identified at this point. After it was completely skeletonized, double titanium clips were placed doubly on the proximal side, singly on the distal side of both cystic duct and cystic artery. Structures were then ligated using Endo S hears. The gallbladder was then removed from the hepatic fossa without evidence of complication and placed in EndoCatch bag and removed through the umbilical trocar, sent off for pathologic examination . The abdomen was then reinsufflated at this point. Electrocautery was used to fulgurate the distal aspect of the hepatic bed with minimal bleeding at this point. Blood loss from the entire portion o f procedure up to this point was approximately less than 10 mL. After the area was cleansed, it was copiously irrigated multiple times and suctioned out completely dry. The patient was positioned back into neutral position. The umbilical trocar site was then closed using a Paul-Eduard suture pas ser with 0 Vicryl in interrupted fashion. Good approximation of tissues. The remaining trocars were then removed under direct visualization without any complication. After completely desufflating the abdomen, all skin incisions were then copiously irrigated closed with 4-0 Monocryl in a running fash ion. Dermabond placed over top. The patient tolerated the procedure well without evidence of compli cation and transferred to PACU in good condition. All counts were correct at the end of the case. GONZALO/CHANELL Voice ID: [id number] Report ID: [id number]
[2021-05-10] MEDS: MORPHINE 4 MG/ML SYR ONE ×2 (11:49→11:55)
[2021-05-10] MEDS ORDERED: TRAMADOL HCL 50 MG TAB ONE (12:38)
[2021-05-10] MEDS ORDERED: PROMETHAZINE INJ 25 MG/ML AMP ONE (12:59)
[2021-05-10 13:33] VITALS: BP 108/53; TEMP 96.3; O2SAT 96
== END 2021-05-10 14:00 | disposition home or self-care (01) ==
LOC: OR 07:27
PROVIDERS: ATTEND Surgery
PROC: BF03YZZ Plain Radiography of Gallbladder and Bile Ducts using Other Contrast (ICD-10-PCS; 2021-05-10)
PROC: 0FT44ZZ Resection of Gallbladder, Percutaneous Endoscopic Approach (ICD-10-PCS; principal; 2021-05-10 09:30)
DX: K80.10 Calculus of gallbladder with chronic cholecystitis without obstruction (principal); Z20.822 Contact with and (suspected) exposure to COVID-19
CPT/HCPCS: 36415 ×2; 88304; 83690; 80053 ×2; 47563; U0003; J2704; J2550; J3010 ×2; J1100; J2710; J7120; J0694; J2405